=== PATIENT | female | born 1995 | race Caucasian/White ===

== ENCOUNTER → 2019-09-07 14:34 | Outpatient (BNVA) | payer SELFPAY | PROVIDERS: Family Provider Nurse Practitioner Family; Visit Provider Nurse Practitioner Family | DX: R35.0 Frequency of micturition (principal); E11.9 Type 2 diabetes mellitus without complications | CPT/HCPCS: 36416; 81003; 82962; 83036 ==

== ENCOUNTER → 2019-09-08 09:34 | Outpatient (BNVA) | payer SELFPAY | PROVIDERS: Family Provider Nurse Practitioner Family; Visit Provider Nurse Practitioner Family | DX: R35.0 Frequency of micturition (principal); E11.9 Type 2 diabetes mellitus without complications; N76.0 Acute vaginitis | CPT/HCPCS: 87070; 87106 ==

== ENCOUNTER → 2019-12-02 11:11 | Outpatient (BNVA) | payer BC, SELFPAY | PROVIDERS: Family Provider Nurse Practitioner Family; PCP Nurse Practitioner Family; Visit Provider Nurse Practitioner Family | DX: E11.9 Type 2 diabetes mellitus without complications (principal) | CPT/HCPCS: 83036 ==

== ENCOUNTER → 2020-04-25 10:42 | Outpatient (BNVA) | payer BC, SELFPAY | PROVIDERS: Family Provider Nurse Practitioner Family; PCP Nurse Practitioner Family; Visit Provider Nurse Practitioner Family | DX: Z20.828 Contact with and (suspected) exposure to other viral communicable diseases (principal) | CPT/HCPCS: 87635 ==

== ENCOUNTER → 2020-05-31 11:16 | Outpatient (BNVA) | payer BC, SELFPAY | PROVIDERS: Family Provider Nurse Practitioner Family; PCP Nurse Practitioner Family; Visit Provider Registered Nurse | DX: E11.9 Type 2 diabetes mellitus without complications (principal) | CPT/HCPCS: 80053; 80061; 83036; 85025 ==

== ENCOUNTER → 2020-12-06 10:22 | Outpatient (BNVA) | payer BC, SELFPAY | PROVIDERS: Family Provider Nurse Practitioner Family; PCP Nurse Practitioner Family; Visit Provider Nurse Practitioner Family | DX: E78.5 Hyperlipidemia, unspecified (principal); Z79.899 Other long term (current) drug therapy; E11.9 Type 2 diabetes mellitus without complications; Z20.828 Contact with and (suspected) exposure to other viral communicable diseases | CPT/HCPCS: 80053; 80061; 83036; 87798 ==

== ENCOUNTER → 2021-05-19 09:27 | Outpatient (BNVA) | payer BC, SELFPAY | PROVIDERS: Family Provider Nurse Practitioner Family; PCP Nurse Practitioner Family | DX: Z20.822 Contact with and (suspected) exposure to COVID-19 (principal) | CPT/HCPCS: 87635 ==

== ENCOUNTER → 2021-05-31 14:09 | Outpatient (BNVA) | payer BC, SELFPAY | PROVIDERS: Family Provider Nurse Practitioner Family; PCP Nurse Practitioner Family; Visit Provider Nurse Practitioner Family | DX: E11.9 Type 2 diabetes mellitus without complications (principal); E66.9 Obesity, unspecified | CPT/HCPCS: 80053; 83036; 84443 ==

== ENCOUNTER → 2022-06-01 09:55 | Outpatient (BNVA) | payer BC, SELFPAY | PROVIDERS: Family Provider Nurse Practitioner Family; PCP Nurse Practitioner Family; Visit Provider Nurse Practitioner Family | DX: E11.9 Type 2 diabetes mellitus without complications (principal); I10 Essential (primary) hypertension | CPT/HCPCS: 80053; 80061; 83036 ==

== ENCOUNTER → 2022-11-28 08:41 | Outpatient (BNVA) | payer BC, SELFPAY | PROVIDERS: Family Provider Nurse Practitioner Family; PCP Nurse Practitioner Family; Visit Provider Nurse Practitioner Family | DX: E11.9 Type 2 diabetes mellitus without complications (principal); I10 Essential (primary) hypertension | CPT/HCPCS: 80053; 80061; 83036 ==

== ENCOUNTER → 2023-06-05 14:57 | Outpatient (BNVA) | payer BC, SELFPAY | PROVIDERS: Family Provider Nurse Practitioner Family; PCP Nurse Practitioner Family; Visit Provider Nurse Practitioner Family | DX: E11.9 Type 2 diabetes mellitus without complications (principal); I10 Essential (primary) hypertension; E78.5 Hyperlipidemia, unspecified | CPT/HCPCS: 80053; 80061; 83036 ==

== ENCOUNTER → 2023-07-24 15:17 | Outpatient (BNVA) | payer BC, SELFPAY | PROVIDERS: Family Provider Nurse Practitioner Family; PCP Nurse Practitioner Family; Visit Provider Nurse Practitioner Family | DX: Z34.90 Encounter for supervision of normal pregnancy, unspecified, unspecified trimester (principal); Z3A.01 Less than 8 weeks gestation of pregnancy | CPT/HCPCS: 81025 ==

== ENCOUNTER → 2023-08-14 08:28 | Outpatient (BNVA) | payer BC, MEDICAID, SELFPAY | PROVIDERS: Family Provider Nurse Practitioner Family; PCP Nurse Practitioner Family; Referring Provider Nurse Practitioner Family; Visit Provider Nurse Practitioner Women's Health | DX: Z34.90 Encounter for supervision of normal pregnancy, unspecified, unspecified trimester (principal) | CPT/HCPCS: 80307; 84315; 84439; 84443; 84481; 85025; 86592; 86762; 86803; 86850; 86900; 87086; 87340; 87806 ==

== ENCOUNTER → 2023-08-28 07:51 | Outpatient (BNVA) | payer BC, MEDICAID, SELFPAY | PROVIDERS: Family Provider Nurse Practitioner Family; PCP Nurse Practitioner Family; Visit Provider Obstetrics & Gynecology | DX: Z36.87 Encounter for antenatal screening for uncertain dates (principal) | CPT/HCPCS: 76801 ==

== ENCOUNTER → 2023-09-11 11:10 | Outpatient (BNVA) | payer BC, MEDICAID, SELFPAY | PROVIDERS: Family Provider Nurse Practitioner Family; PCP Nurse Practitioner Family; Visit Provider Obstetrics & Gynecology | DX: N93.9 Abnormal uterine and vaginal bleeding, unspecified | CPT/HCPCS: 82950; 84315; 87086; 88175 ==

== ENCOUNTER → 2023-10-01 07:53 | Outpatient (BNVA) | payer BC, MEDICAID, SELFPAY | PROVIDERS: Family Provider Nurse Practitioner Family; PCP Nurse Practitioner Family; Visit Provider Nurse Practitioner Women's Health | DX: Z34.81 Encounter for supervision of other normal pregnancy, first trimester (principal) | CPT/HCPCS: 82105; 84315 ==

== ENCOUNTER → 2023-10-31 09:41 | Outpatient (BNVA) | payer BC, MEDICAID, SELFPAY | PROVIDERS: Family Provider Nurse Practitioner Family; PCP Nurse Practitioner Family; Visit Provider Obstetrics & Gynecology | DX: Z36.87 Encounter for antenatal screening for uncertain dates (principal) | CPT/HCPCS: 76805 ==

== ENCOUNTER → 2023-11-28 08:52 | Outpatient (BNVA) | payer BC, OTHER, SELFPAY | PROVIDERS: Family Provider Nurse Practitioner Family; PCP Nurse Practitioner Family; Visit Provider Nurse Practitioner Women's Health | DX: Z34.82 Encounter for supervision of other normal pregnancy, second trimester (principal) | CPT/HCPCS: 76816; 84315 ==

== ENCOUNTER 2023-12-10 09:42 | Outpatient (CLI) | payer BC, OTHER, SELFPAY ==
--- NOTE | 2023-12-10 14:55 | OP.DCCON ---
Reason for Visit: O24.119 - Pre-existing type 2 diabetes mellitus, i Person Interviewed: Patient Medical History, Labs and Background: Eliza said she was diagnosed with DM2 in 2019 and has been taking 500mg Metformin ever since. Right after being diagnosed, she changed her diet and lost 40lbs. She also is and due March 18. She is worried about her blood glucose levels and wants meal plans of what to eat. Height: 5 ft 11 in Weight: 269 lb BMI: 37.6 kg/m2 Weight History: She lost 40lbs after being diagnosed with DM2 4 years ago. Concerns and Goals: She would like meal plans. Sleep Hygiene: Sleep is erratic per Eliza - she is up going to the bathroom every 3-4 hours. Physical Activity: Walking is her time to de-stress so she tries to walk 3 miles at least 3x/week. Food Allergies and Sensitivities: NKA Meds, Supplements & Other: vitamins 24 Hour Recall: Breakfast Time: 6am scrambled eggs(2)w/cheese, 2 sausage links, 1 pc low jaclyn sugar free bread Snack Time: 11am yogurt+berries+nuts Lunch Time: Snack Time: 3pm vegetable soup plus crackers Dinner Time: Snack Time: 6pm vegetable soup + crackers Eating Out: They will eat out 2-3x/week at least Soda vs Milk vs Water: In the morning Eliza will have diet Dr. Mc or Diet Earle, she drinks 3-5 plascencia/day and occasionally milk. Additional Comments: Eliza seems motivated to keep her blood glucose levels WNL. Currently she has gained more weight than she anticipated and is hoping it won't continue. Certain foods spike her blood glucose like mandarin oranges and regular potatoes so she avoids them. Breakfast time can be a struggle for her. Humberto her fiance and her sister are her biggest sources of support and encouragement. Recommendations: Assessment: Overall Eliza has a good start with healthy habits. She is drinking water, eating regularly and enjoys/needs exercising. The more we talked, the more it became clear she wanted not just meal plans but help with portions. Nutrition diagnosis: Altered nutrition labs r/t DM2 AEB high blood glucose readings. Intervention: We discussed the Diabetic MyPlate handout to get an idea of managing carbohydrates and rounding out each meal or snack with lean protein and healthy fats. Then we discussed breakfast because Eliza said it is a struggle d/t being busy. We talked about high protein/ low carb drinks or shakes for the times when she feels too busy. Also, we talked about meal prep and planning which would be a good habit to have now so that life is easier once baby comes. Part of that is creating an environment in her pantry and kitchen such that she has foods on hand that she knows will be healthy choices. Since her fiance works nights, we talked about Saturday being a day of meal prepping so that they could plan and prep together. For meal plan ideas, I gave her 6 weeks worth of balanced meals to use for ideas or as templates. Lastly I encouraged her to keep up drinking water and walking. She said she already has a good stroller to take baby on walks. Monitoring and Evaluation: The take home paper has my email and phone/extension for any f/u questions and concerns. Coding Level of Care Code Nutrition/Individ/Init 60 min Time Spent (min) 60
== END 2023-12-10 09:43 | disposition home or self-care (01) ==
LOC: DIET 09:43
PROVIDERS: Family Provider Nurse Practitioner Family; PCP Nurse Practitioner Family; Visit Provider Obstetrics & Gynecology
DX: O24.119 Pre-existing type 2 diabetes mellitus, in pregnancy, unspecified trimester (principal); Z79.84 Long term (current) use of oral hypoglycemic drugs
CPT/HCPCS: 97802

== ENCOUNTER → 2023-12-25 07:44 | Outpatient (BNVA) | payer BC, OTHER, SELFPAY | PROVIDERS: Family Provider Nurse Practitioner Family; PCP Nurse Practitioner Family; Visit Provider Obstetrics & Gynecology | DX: Z34.90 Encounter for supervision of normal pregnancy, unspecified, unspecified trimester (principal) | CPT/HCPCS: 82951; 82952; 84315 ==

== ENCOUNTER → 2024-01-16 13:12 | Outpatient (BNVA) | payer BC, OTHER, SELFPAY | PROVIDERS: Family Provider Nurse Practitioner Family; PCP Nurse Practitioner Family; Visit Provider Obstetrics & Gynecology | DX: Z34.90 Encounter for supervision of normal pregnancy, unspecified, unspecified trimester (principal) | CPT/HCPCS: 76816 ==

== ENCOUNTER 2024-02-07 18:09 | Outpatient (CLI) | payer BC, OTHER, MEDICAID, SELFPAY ==
[2024-02-07] VITALS (13 sets, daily range): BP systolic 140–214; BP diastolic 74–115; PULSE 84–110; RESP 14–17; BMI 39.2
[2024-02-07 18:43] LABS: Add Urine Microscopic? NO; Charge for UA Resulting for Rev
[2024-02-07 18:46] LABS: Bilirubin Urine Neg (Negative); Blood Urine Neg (Negative); Glucose Urine UA Norm (Normal); Ketones Urine 3+ (Negative); Leukocyte Esterase Urine Negative (Negative); Nitrate Urine Negative (Negative); Protein Urine Neg (Negative); Urine Appearance Clear (CLEAR); Urine Color Yellow (Yellow); Urobilinogen Urine 1 mg/dL (Negative); pH Urine 5 (5-7)
[2024-02-07 19:11] LABS: Urine Creatinine 128 mg/dL (28-217); Urine Protein Random 15 mg/dL
[2024-02-07 19:12] LABS: UPRO/UCREAT Ratio 0.12 mg/mg CR
[2024-02-07] MEDS: NIFEdipine ER (24 hr) 30 mg Tablet PO (19:15)
[2024-02-07 19:29] LABS: Alanine Aminotransferase 8 U/L (0-33); Albumin Level 3.7 g/dL (3.5-5.2); Alkaline Phosphatase 61 U/L (35-105); Anion Gap 18.4 (5-19); Aspartate Amino Transferase 13 U/L (0-32); Blood Urea Nitrogen 11 mg/dL (6-20); Calcium 9.4 mg/dL (8.5-10.5); Carbon Dioxide 22 mmol/L (22-29); Chloride 103 mmol/L (98-107); Creatinine Clr Calc Pharmacy 242.7457; Globulin 3.8 g/dL (1.3-4.6); Glomerular Filtration Rate 144.9 mL/min (90-130); Glucose 97 mg/dL (65-115); Osmolality Calculated 287 mOsm/kg (285-295); Potassium 4.4 mmol/L (3.5-5.1); Sodium 139 mmol/L (136-145); Total Bilirubin 0.2 mg/dL (0.15-1.2); Total Protein 7.5 g/dL (6.6-8.7); Uric Acid 4.7 mg/dL (2.4-5.7)
[2024-02-07 19:36] LABS: Basophils % 0.3 %; Eosinophils # 0.1 10^3/uL (0.0-0.8); Eosinophils % 0.7 %; Hematocrit 39.9 % (36-47); Lymphocytes # 2.1 10^3/uL (0.8-4.8); Lymphocytes % 19.8 %; Mean Corpuscular HGB Conc 33.8 g/dL (30-55); Mean Corpuscular Volume 91.5 fl (85-98); Mean Platelet Volume 10.3 fL (7.4-10.4); Monocytes # 0.7 10^3/uL (0.2-0.9); Monocytes % 6.5 %; Neutrophils # 7.44 10^3/uL (1.8-7.7); Neutrophils % 71.8 %; Nucleated Red Blood Cells % 0 %; Platelet Count 295 10^3/cmm (157-399); Red Blood Count 4.36 10^6/uL (3.85-5.65); Red Cell Distribution Width 13.6 % (12.1-15.1); White Blood Count 10.35 10^3/uL (3.29-11.43)
[2024-02-07] MEDS: betamethasone susp 6 mg/mL 1 mL (per mL) 12 MG IM (21:23)
== END 2024-02-07 21:53 | disposition home or self-care (01) ==
LOC: OPOB 18:11 → OBGYN 18:11
PROVIDERS: Family Provider Nurse Practitioner Family; PCP Nurse Practitioner Family; Visit Provider Obstetrics & Gynecology
DX: O24.419 Gestational diabetes mellitus in pregnancy, unspecified control (principal); Z3A.00 Weeks of gestation of pregnancy not specified
CPT/HCPCS: 36415; 59025; 80053; 81003; 82570; 84156; 84550; 85025; 96372; 99211; J0702

== ENCOUNTER 2024-02-09 09:36 | Outpatient (CLI) | payer BC, MEDICAID, SELFPAY ==
[2024-02-09 09:41] VITALS: BMI 39.0
[2024-02-09 09:45] VITALS: RESP 18
[2024-02-09 09:53] VITALS: RESP 18; TEMP 36.8
[2024-02-09 09:57] VITALS: BP 145/82; PULSE 95
[2024-02-09 10:01] LABS: Total Volume, Urine 3400 mL
[2024-02-09 10:07] VITALS: BP 144/78; PULSE 90
[2024-02-09 10:10] LABS: Urine Total Protein 7.3 mg/dL (0-150)
[2024-02-09 10:17] VITALS: BP 137/74; PULSE 96
[2024-02-09 10:18] LABS: Urine Total Protein 24 Hour 248.2 mg/24hr (0-150)
== END 2024-02-09 10:30 ==
LOC: OPOB 09:36 → OBGYN 09:37
PROVIDERS: Family Provider Nurse Practitioner Family; PCP Nurse Practitioner Family; Visit Provider Obstetrics & Gynecology
DX: O16.9 Unspecified maternal hypertension, unspecified trimester (principal); Z3A.00 Weeks of gestation of pregnancy not specified
CPT/HCPCS: 59025; 84156

== ENCOUNTER 2024-02-12 08:23 | Outpatient (CLI) | payer BC, MEDICAID, SELFPAY ==
[2024-02-12] VITALS (9 sets, daily range): BP systolic 135–194; BP diastolic 67–102; PULSE 82–110; BMI 38.7
[2024-02-12 09:04] LABS: Add Urine Microscopic? NO; Charge for UA Resulting for Rev
[2024-02-12 09:11] LABS: Basophils % 0.3 %; Eosinophils # 0.1 10^3/uL (0.0-0.8); Eosinophils % 0.7 %; Lymphocytes # 1.5 10^3/uL (0.8-4.8); Lymphocytes % 14.4 %; Mean Corpuscular HGB Conc 33.8 g/dL (30-55); Mean Corpuscular Hemoglobin 30.3 pg (27-33); Mean Corpuscular Volume 89.7 fl (85-98); Mean Platelet Volume 9.7 fL (7.4-10.4); Monocytes # 0.7 10^3/uL (0.2-0.9); Monocytes % 6.3 %; Neutrophils # 8.24 10^3/uL (1.8-7.7); Nucleated Red Blood Cells % 0 %; Platelet Count 281 10^3/cmm (157-399); Red Blood Count 4.35 10^6/uL (3.85-5.65); Red Cell Distribution Width 13.3 % (12.1-15.1); White Blood Count 10.71 10^3/uL (3.29-11.43)
[2024-02-12 09:29] LABS: Alanine Aminotransferase 10 U/L (0-33); Albumin Level 3.6 g/dL (3.5-5.2); Alkaline Phosphatase 63 U/L (35-105); Anion Gap 17.7 (5-19); Aspartate Amino Transferase 12 U/L (0-32); Blood Urea Nitrogen 7 mg/dL (6-20); Carbon Dioxide 19 mmol/L (22-29); Chloride 105 mmol/L (98-107); Globulin 3.5 g/dL (1.3-4.6); Glomerular Filtration Rate 144.9 mL/min (90-130); Glucose 145 mg/dL (65-115); Osmolality Calculated 287 mOsm/kg (285-295); Potassium 3.7 mmol/L (3.5-5.1); Sodium 138 mmol/L (136-145); Total Bilirubin 0.2 mg/dL (0.15-1.2); Total Protein 7.1 g/dL (6.6-8.7); Uric Acid 4.7 mg/dL (2.4-5.7)
[2024-02-12 09:33] LABS: Blood Urine Neg (Negative); Glucose Urine UA Norm (Normal); Ketones Urine Negative (Negative); Protein Urine Neg (Negative); Urine Appearance Clear (CLEAR); Urine Color Yellow (Yellow); pH Urine 7 (5-7)
[2024-02-12 09:34] LABS: Bilirubin Urine Neg (Negative); Leukocyte Esterase Urine Negative (Negative); Nitrate Urine Negative (Negative); Urobilinogen Urine Norm (Negative)
[2024-02-12 09:57] LABS: Urine Creatinine 65 mg/dL (28-217); Urine Protein Random 9 mg/dL
[2024-02-12 10:16] LABS: UPRO/UCREAT Ratio 0.14 mg/mg CR
== END 2024-02-12 10:38 | disposition home or self-care (01) ==
LOC: OPOB 08:26 → OBGYN 08:29
PROVIDERS: Obstetrics & Gynecology; Family Provider Nurse Practitioner Family; PCP Nurse Practitioner Family; Visit Provider Obstetrics & Gynecology
DX: O24.419 Gestational diabetes mellitus in pregnancy, unspecified control (principal); O16.9 Unspecified maternal hypertension, unspecified trimester; Z3A.00 Weeks of gestation of pregnancy not specified
CPT/HCPCS: 36415; 59025; 80053; 81003; 82570; 84156; 84315; 84550; 85025

== ENCOUNTER 2024-02-23 11:10 | Outpatient (CLI) | payer BC, MEDICAID, SELFPAY ==
[2024-02-23 11:22] VITALS: BP 142/78; PULSE 93
[2024-02-23 11:27] VITALS: BMI 38.6
[2024-02-23 11:28] VITALS: RESP 18
[2024-02-23 11:37] VITALS: BP 116/64; PULSE 88
== END 2024-02-23 11:45 | disposition home or self-care (01) ==
LOC: OPOB 11:17 → OBGYN 11:18
PROVIDERS: Family Provider Nurse Practitioner Family; PCP Nurse Practitioner Family; Visit Provider Obstetrics & Gynecology
DX: O16.9 Unspecified maternal hypertension, unspecified trimester (principal); Z3A.00 Weeks of gestation of pregnancy not specified
CPT/HCPCS: 59025

== ENCOUNTER 2024-03-04 07:55 | Inpatient (IN) | payer BC, MEDICAID, SELFPAY ==
[2024-03-04] VITALS (32 sets, daily range): BP systolic 118–182; BP diastolic 63–98; PULSE 46–106; RESP 16; TEMP 36.1; BMI 39.0
[2024-03-04 09:33] LABS: Basophils % 0.3 %; Eosinophils # 0.1 10^3/uL (0.0-0.8); Eosinophils % 0.8 %; Hematocrit 41.5 % (36-47); Lymphocytes # 1.6 10^3/uL (0.8-4.8); Lymphocytes % 18.4 %; Mean Corpuscular HGB Conc 33.3 g/dL (30-55); Mean Corpuscular Hemoglobin 30.3 pg (27-33); Monocytes # 0.6 10^3/uL (0.2-0.9); Monocytes % 6.4 %; Neutrophils # 6.47 10^3/uL (1.8-7.7); Neutrophils % 72.9 %; Nucleated Red Blood Cells % 0 %; Platelet Count 299 10^3/cmm (157-399); Red Blood Count 4.56 10^6/uL (3.85-5.65); Red Cell Distribution Width 13.6 % (12.1-15.1); White Blood Count 8.89 10^3/uL (3.29-11.43)
--- NOTE | 2024-03-04 11:05 | PM.OBGYHP ---
Providers/Chief Complaint Admitting Physician: Rohit Peraza MD Primary PARKING LINE PAINTER: Rohit Peraza MD Primary Care Provider: GAYLE Thorpe Chief Complaint: IOL HPI PARKING LINE PAINTER History of Present Illness Eliza Robison is a 29 year old female G1 EDC March 18, 2024 At 38 w 0 d complicated by gestational diabetes, requiring insulin And gestational hypertension, requiring Procardia 30 mg XL bid Now admitted for induction of labor No c/o + active movements 3-h GTT done December 25, 2023: 127 / 266 / 223 / 98 Started on accuchecks Accuchecks done at home showed elevated FBS and normal 1-h postprandial values Patient was started on evening NPH 10 U at 9 pm for fasting hyperglycemia on January 08, 2024 Presently on evening NPH 19 U at 9 pm Over the past week, FBS still mildly elevated; one-h postprandial values normal BPs occasionally have been significantly elevated to 150-160 / 90-100, already on procardia Has been getting twice weekly NSTs and BP checks in L&D, all of which have been normal Present Details : 1 Para: 0 Labs Rubella: Immune RPR: Negative GBS: Negative Medications/Allergies Home Medications Medication Instructions Recorded Confirmed Last Taken Type blood-glucose meter (Blood Glucose #1 ea 09/07/19 02/26/24 Unknown Rx Monitoring kit) blood-glucose meter (Blood Glucose #1 ea 11/29/23 02/26/24 Unknown Rx Monitoring kit) lancets 30 gauge (2-In-1 Lancet #100 ea 12/12/23 02/26/24 Unknown Rx Device) insulin NPH isoph U-100 human 100 10 unit (0.1 mL) SUBCUT DAILY 01/08/24 03/05/24 03/04/24 21:00 Rx unit/mL (3 mL) subcutaneous pen Gestational Diabetes #15 mL (Novolin N FlexPen) blood sugar diagnostic (OneTouch #100 ea 01/24/24 02/26/24 Unknown Rx Verio test strips) nifedipine 30 mg tablet,extended 30 mg PO BID #60 tabs 02/08/24 03/05/24 03/05/24 07:53 Rx release 24 hr (Procardia XL) metformin 500 mg tablet See Rx Instructions .Route 02/26/24 03/05/24 03/05/24 07:53 Rx .COMPLEX #90 tabs Allergies Allergy/AdvReac Type Severity Reaction Status Date / Time No Known Allergies Allergy Verified 02/26/24 07:48 PFSH PARKING LINE PAINTER PFSH: Family History Denies family history of Colon cancer Ovarian cancer Diabetes Heart disease Breast cancer Hypertension Uterine cancer Thyroid disease Stroke Social History Smoking and tobacco/nicotine status: never used tobacco/nicotine History History History 1 Term Miscarriages/Ectopic Living Children Care DANIKA Calculator Estimated Delivery Date Method Current WG Current Estimate 03/18/24 LMP (Certain) 38w 2d Vitals/I&O/Wt Last Vital Signs Temp 97.0 F L 03/04/24 19:33 Pulse 82 03/05/24 05:42 Resp 16 03/04/24 18:02 BP 176/91 03/05/24 05:42 O2 Del Method Room Air 03/04/24 15:02 03/04/24 03/04/24 03/05/24 14:59 22:59 06:59 Intake Total 500 / 500 Balance 500 / 500 Weight last 48 hrs Weight 280 lb Physical Exam Narrative: Weight 285 lbs; 5?11? General: comfortable, awake, alert Lungs: clear Cor: RRR Abd: nontender FH 37 cm, cephalic Cervix: FT / 25% / high / posterior Ext: no edema External monitoring: heart tracing good variability, + accelerations Data 03/04/24 08:22 Results Labs OB ([facility]): Obstetrics US 01/16/24 Blood Type O Positive 03/04/24 Antibody Screen Negative 03/04/24 Hct 41.5 % (36-47) 03/04/24 Hgb 13.80 g/dL (11.27-16.99) 03/04/24 Rho(D) Type Rh positive 03/04/24 Plt Count 299 10^3/cmm (157-399) 03/04/24 Hep Bs Antigen Non-reactive (Nonreactive) 08/14/23 Hepatitis C Antibody Non-reactive (Nonreactive) 08/14/23 Rubella IgG Antibody 261.3 IU/mL (0.0-10.0) H 08/14/23 RPR Nonreactive (Nonreactive) 08/14/23 HIV 1&2 Ab & HIV 1 Ag Non-reactive (Non-Reactiv) 08/14/23 TSH 1.66 uIU/mL (0.27-4.20) 08/14/23 Free T4 1.15 ng/dL (0.82-1.77) 08/14/23 Cystic Fibrosis Screen Negative 08/14/23 Glucose 1 Hr 50 gm 134 mg/dL (85-140) 09/11/23 Gest Glucose Tolerance mg/dL 12/25/23 Hemoglobin A1c 5.5 % (4.0-6.0) 06/05/23 Uric Acid 4.7 mg/dL (2.4-5.7) 02/12/24 HCG, Qual Positive (Negative) H 07/24/23 Urine Opiates Screen Negative ng/mL (Negative) 08/14/23 Ur Barbiturates Screen Negative ng/mL (Negative) 08/14/23 Ur Phencyclidine Scrn Negative ng/mL (Negative) 08/14/23 Ur Amphetamines Screen Negative ng/mL (Negative) 08/14/23 U Benzodiazepines Scrn Negative ng/mL (Negative) 08/14/23 Urine Cocaine Screen Negative ng/mL (Negative) 08/14/23 U Marijuana (THC) Screen Negative ng/mL (Negative) 08/14/23 Micro Urine Specimen 09/11/23 Pap Smear Interpret See note 09/11/23 A&P Assessment and plan (1) Encounter for induction of labor: 38 w 0 d admitted for induction of labor (2) Type 2 diabetes mellitus affecting , antepartum: Admit for IOL Cervix unfavorable Plan Cytotec 25 ug intravaginal (3) Hypertension: gestational hypertension BPs intermittently elevated to 170 / 110 No headaches, blurry vision, swelling continue Procardia 30 mg XL continue close monitoring Attestations Medical Necessity Statement*: Patient at 38 w 0 d, with gestational diabetes and hypertension, on insulin and Procardia Admitted for induction of labor Coding Level of Care Code Acute Code for Chg Fwd Diagnoses Encounter for induction of labor Z34.90 Type 2 diabetes mellitus affecting , antepartum O24.119 Hypertension I10 Time Spent (min) 30
--- NOTE | 2024-03-04 11:20 | P.PN_ITS ---
CIVIL ENGINEERING DRAFTER Subjective 2 Subjective: Interval history: Fetus reassuring BPs intermittently elevated, now better No headache, blurry vision Received one dose of Cytotec 25 ug intravaginal Labor: Station: +2 Amniotic Membrane Status: Intact Monitor Mode: Internal (IUPC) Contraction Pattern: Regular Uterine Tone Measurement: 15 Vitals/I&O/Wt Last Vital Signs Temp 98.2 F 03/06/24 03:58 Pulse 111 H 03/06/24 08:06 Resp 16 03/04/24 18:02 BP 141/67 03/06/24 08:06 Pulse Ox 100 03/05/24 07:42 O2 Del Method Room Air 03/06/24 02:59 03/05/24 03/06/24 03/06/24 22:59 06:59 14:59 Intake Total 431.833 / 2502.833 760.417 / 3263.250 436.750 / 436.750 Output Total 1600 / 1600 700 / 2300 Balance -1168.167 / 902.833 60.417 / 963.250 436.750 / 436.750 Physical Exam 2 Urinary Catheter Management: Rivera: Cath Placed During This Visit: yes, but has since been removed by the nurse Reason for Continuing Indwelling Catheter: Decision to DC Catheter Urinary Catheter Date of Insertion: 03/05/24 Urinary Catheter Time of Insertion: 07:39 Date Urinary Catheter Removed: 03/06/24 Time Urinary Catheter Discontinued: 06:08 Data 03/04/24 08:22 A&P Assessment and plan (1) Encounter for induction of labor: (2) Type 2 diabetes mellitus affecting , antepartum: (3) Hypertension: Attestations 2 Medical Necessity Statement*: Patient at 38 w 0 d, with gestational diabetes and hypertension, on insulin and Procardia Admitted for induction of labor Coding Level of Care Code Acute Code for Chg Fwd Diagnoses Encounter for induction of labor Z34.90 Type 2 diabetes mellitus affecting , antepartum O24.119 Hypertension I10 Time Spent (min) 20
--- NOTE | 2024-03-04 12:39 | P.ANESASSM_ITS ---
Pre-Anesthetic Assessment Height/Weight: Height 1.8 m Pulse BP O2 Del Method 91 142/74 Room Air 03/04/24 12:28 03/04/24 12:28 03/04/24 11:21 Familial anesthetic complications: None Was Beta Doug taken within 24 hours: N/A Was Clonidine taken within 24 hours: N/A Last intake: Solids 1230 Social No alcohol and No tobacco Exam alert, oriented x 3, clear to auscultation bilaterally and regular rate & rhythm Airway Submandibular: within normal limits Cervical ROM: within normal limits Mallampati: Class II Dentition: full History/ROS No significant history except as noted and No significant complaints Pulmonary None reported CV/HEM Hypertension (Gestational HTN) None reported Hepatic None reported GI Gastroesophageal Reflux Disease Metabolic Diabetes Mellitus (Gestational) and Morbid Obesity [facility] [place] None reported Neuropsych None reported Anesthetic Plan ASA status: 2 Anesthesia: Anesthesia Evaluation, General and Regional (specify below) (Epidural) Risk of > 500 ml blood loss (7ml/kg in children): Yes, adequate IV access and fluids planned Medications/Allergies Home Medications Medication Instructions Recorded Confirmed Last Taken Type blood-glucose meter (Blood Glucose #1 ea 09/07/19 02/26/24 Unknown Rx Monitoring kit) blood-glucose meter (Blood Glucose #1 ea 11/29/23 02/26/24 Unknown Rx Monitoring kit) lancets 30 gauge (2-In-1 Lancet #100 ea 12/12/23 02/26/24 Unknown Rx Device) insulin NPH isoph U-100 human 100 10 unit (0.1 mL) SUBCUT DAILY 01/08/24 02/26/24 02/15/24 Rx unit/mL (3 mL) subcutaneous pen Gestational Diabetes #15 mL (Novolin N FlexPen) blood sugar diagnostic (OneTouch #100 ea 01/24/24 02/26/24 Unknown Rx Verio test strips) nifedipine 30 mg tablet,extended 30 mg PO BID #60 tabs 02/08/24 02/26/24 02/16/24 Rx release 24 hr (Procardia XL) metformin 500 mg tablet See Rx Instructions .Route 02/26/24 Unknown Rx .COMPLEX #90 tabs Allergies Allergy/AdvReac Type Severity Reaction Status Date / Time No Known Allergies Allergy Verified 02/26/24 07:48 [facility] Anesthesia Family History Denies family history of Colon cancer Ovarian cancer Diabetes Heart disease Breast cancer Hypertension Uterine cancer Thyroid disease Stroke Social History Smoking and tobacco/nicotine status: never used tobacco/nicotine Data Anesthesia 03/04/24 08:22 Short CBC 03/04/24 Range/Units 08:22 WBC 8.89 (3.29-11.43) 10^3/uL Hgb 13.80 (11.27-16.99) g/dL Hct 41.5 (36-47) % MCV 91.0 (85-98) fl Plt Count 299 (157-399) 10^3/cmm Neut % (Auto) 72.9 % Neut # (Auto) 6.47 (1.8-7.7) 10^3/uL Blood Bank 03/04/24 08:22 Blood Type O Positive Rho(D) Type Rh positive Antibody Screen Negative Cardiac Studies: 2 No Data to Display
[2024-03-04] MEDS: miSOPROStol 100 mcg tablet 25 MCG VAGINAL ×2 (13:25→18:02)
--- NOTE | 2024-03-04 17:30 | P.PN_ITS ---
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 Subjective 2 Subjective: Interval history: Not feeling UCs Fetus reassuring Cervix: FT / -3 / posterior Plan second dose of Cytotec 25 ug intravaginal Labor: Station: +2 Amniotic Membrane Status: Intact Monitor Mode: Internal (IUPC) Contraction Pattern: Regular Uterine Tone Measurement: 15 Vitals/I&O/Wt Last Vital Signs Temp 98.2 F 03/06/24 03:58 Pulse 111 H 03/06/24 08:06 Resp 16 03/04/24 18:02 BP 141/67 03/06/24 08:06 Pulse Ox 100 03/05/24 07:42 O2 Del Method Room Air 03/06/24 02:59 03/05/24 03/06/24 03/06/24 22:59 06:59 14:59 Intake Total 431.833 / 2502.833 760.417 / 3263.250 436.750 / 436.750 Output Total 1600 / 1600 700 / 2300 Balance -1168.167 / 902.833 60.417 / 963.250 436.750 / 436.750 Physical Exam 2 Urinary Catheter Management: Rivera: Cath Placed During This Visit: yes, but has since been removed by the nurse Reason for Continuing Indwelling Catheter: Decision to DC Catheter Urinary Catheter Date of Insertion: 03/05/24 Urinary Catheter Time of Insertion: 07:39 Date Urinary Catheter Removed: 03/06/24 Time Urinary Catheter Discontinued: 06:08 Data 03/04/24 08:22 A&P Assessment and plan (1) Encounter for induction of labor: (2) Type 2 diabetes mellitus affecting , antepartum: (3) Hypertension: Attestations 2 Medical Necessity Statement*: Patient at 38 w 0 d, with gestational diabetes and hypertension, on insulin and Procardia Admitted for induction of labor Coding Level of Care Code Acute Code for Chg Fwd Diagnoses Encounter for induction of labor Z34.90 Type 2 diabetes mellitus affecting , antepartum O24.119 Hypertension I10 Time Spent (min) 20
--- NOTE | 2024-03-04 22:00 | PM.OBGYPN ---
SENIOR NATIONAL ACCOUNT MANAGER Subjective Subjective: Interval history: Fetus reassuring Feeling mild UCs Cervix: FT / -3 / posterior Plan third dose of Cytotec 25 ug intravaginal Labor: Station: +2 Amniotic Membrane Status: Intact Monitor Mode: Internal (IUPC) Contraction Pattern: Regular Uterine Tone Measurement: 15 Vitals/I&O/Wt Last Vital Signs Temp 98.2 F 03/06/24 03:58 Pulse 111 H 03/06/24 08:06 Resp 16 03/04/24 18:02 BP 141/67 03/06/24 08:06 Pulse Ox 100 03/05/24 07:42 O2 Del Method Room Air 03/06/24 02:59 03/05/24 03/06/24 03/06/24 22:59 06:59 14:59 Intake Total 431.833 / 2502.833 760.417 / 3263.250 436.750 / 436.750 Output Total 1600 / 1600 700 / 2300 Balance -1168.167 / 902.833 60.417 / 963.250 436.750 / 436.750 Physical Exam Urinary Catheter Management: Rivera: Cath Placed During This Visit: yes, but has since been removed by the nurse Reason for Continuing Indwelling Catheter: Decision to DC Catheter Urinary Catheter Date of Insertion: 03/05/24 Urinary Catheter Time of Insertion: 07:39 Date Urinary Catheter Removed: 03/06/24 Time Urinary Catheter Discontinued: 06:08 Data 03/04/24 08:22 A&P Assessment and plan (1) Encounter for induction of labor: (2) Type 2 diabetes mellitus affecting , antepartum: (3) Hypertension: Attestations Medical Necessity Statement*: Patient at 38 w 0 d, with gestational diabetes and hypertension, on insulin and Procardia Admitted for induction of labor Coding Level of Care Code Acute Code for Chg Fwd Diagnoses Encounter for induction of labor Z34.90 Type 2 diabetes mellitus affecting , antepartum O24.119 Hypertension I10 Time Spent (min) 20
[2024-03-05] VITALS (84 sets, daily range): BP systolic 112–187; BP diastolic 56–95; PULSE 68–127; TEMP 35.9–37.1; O2SAT 99–100
[2024-03-05] MEDS: miSOPROStol 100 mcg tablet 25 MCG VAGINAL (01:17)
--- NOTE | 2024-03-05 04:00 | P.PN_ITS ---
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 2 Subjective: Interval history: Fetus reassuring Spontaneous rupture of membranes, clear fluid Cervix: 1 cm / -3 Labor: Station: +2 Amniotic Membrane Status: Intact Monitor Mode: Internal (IUPC) Contraction Pattern: Regular Uterine Tone Measurement: 15 Vitals/I&O/Wt Last Vital Signs Temp 98.2 F 03/06/24 03:58 Pulse 111 H 03/06/24 08:06 Resp 16 03/04/24 18:02 BP 141/67 03/06/24 08:06 Pulse Ox 100 03/05/24 07:42 O2 Del Method Room Air 03/06/24 02:59 03/05/24 03/06/24 03/06/24 22:59 06:59 14:59 Intake Total 431.833 / 2502.833 760.417 / 3263.250 436.750 / 436.750 Output Total 1600 / 1600 700 / 2300 Balance -1168.167 / 902.833 60.417 / 963.250 436.750 / 436.750 Physical Exam 2 Urinary Catheter Management: Rivera: Cath Placed During This Visit: yes, but has since been removed by the nurse Reason for Continuing Indwelling Catheter: Decision to DC Catheter Urinary Catheter Date of Insertion: 03/05/24 Urinary Catheter Time of Insertion: 07:39 Date Urinary Catheter Removed: 03/06/24 Time Urinary Catheter Discontinued: 06:08 Data 03/04/24 08:22 Attestations 2 Medical Necessity Statement*: Patient at 38 w 1 d, with gestational diabetes and hypertension, on insulin and Procardia Admitted for induction of labor Coding Level of Care Code Acute Code for Chg Fwd Time Spent (min) 20
--- NOTE | 2024-03-05 05:00 | PM.OBGYPN ---
DIESEL STATIONARY ENGINEER Subjective Subjective: Interval history: Fetus reassuring Cervix: complete / +1 Plan start pushing efforts Labor: Station: +2 Amniotic Membrane Status: Intact Monitor Mode: Internal (IUPC) Contraction Pattern: Regular Uterine Tone Measurement: 15 Vitals/I&O/Wt Last Vital Signs Temp 98.2 F 03/06/24 03:58 Pulse 115 H 03/06/24 08:46 Resp 16 03/04/24 18:02 BP 120/71 03/06/24 08:46 Pulse Ox 100 03/05/24 07:42 O2 Del Method Room Air 03/06/24 02:59 03/05/24 03/06/24 03/06/24 22:59 06:59 14:59 Intake Total 431.833 / 2502.833 760.417 / 3263.250 436.750 / 436.750 Output Total 1600 / 1600 700 / 2300 Balance -1168.167 / 902.833 60.417 / 963.250 436.750 / 436.750 Physical Exam Urinary Catheter Management: Rivera: Cath Placed During This Visit: yes, but has since been removed by the nurse Reason for Continuing Indwelling Catheter: Decision to DC Catheter Urinary Catheter Date of Insertion: 03/05/24 Urinary Catheter Time of Insertion: 07:39 Date Urinary Catheter Removed: 03/06/24 Time Urinary Catheter Discontinued: 06:08 Data 03/04/24 08:22 A&P Assessment and plan (1) Encounter for induction of labor: (2) Type 2 diabetes mellitus affecting , antepartum: (3) Hypertension: Attestations Medical Necessity Statement*: Patient at 38 w 2 d, with gestational diabetes and hypertension, on insulin and Procardia Admitted for induction of labor Coding Level of Care Code Acute Code for Chg Fwd Diagnoses Encounter for induction of labor Z34.90 Type 2 diabetes mellitus affecting , antepartum O24.119 Hypertension I10 Time Spent (min) 20
[2024-03-05] MEDS: lactated ringers 1,000 ML 999 ML IV ×2 (06:07→07:10)
[2024-03-05] MEDS: ROPivacaine syringe 100 MG/50 ML SYRINGE 10 MG EPIDURAL ×3 (07:20→16:32)
--- NOTE | 2024-03-05 07:26 | ANES.PROC ---
Anesthesia Procedures Procedure/Date: 03/05/24 Epidural: Time Out Performed: Yes Consents Signed: Procedure Consent Consent: requested by attending/covering physician, from patient, from other, risks and benefits reviewed and patient agrees to proceed Lumbar Level: L3-L4 Epidural position: sitting Epidural procedure: sterile prep of area, 1% lidocaine to numb the area, 18 g needle, negative for paresthesia passed, neg for paresthesia, test dose given, 1.5% xylocaine 1:200k epi (5), 0.2% Ropivacaine bolus ml (5), placed PCEA, no systemic response, sterile dressing applied, L.U.D. no apparent complications and 0.2% Ropiavacaine @ mls/hr (10) Additional Comments: HILLARY at7 cm, threaded to 13 cm. Patient reported subsequent pain-free contraction
--- NOTE | 2024-03-05 07:30 | P.PN_ITS ---
LEAN ENGINEER Subjective 2 Subjective: Interval history: Fetus reassuring Feeling strong contractions Patient requests epidural Cervix: 2 cm / 50 % / -3 / posterior Labor: Station: +2 Amniotic Membrane Status: Intact Monitor Mode: Internal (IUPC) Contraction Pattern: Regular Uterine Tone Measurement: 15 Vitals/I&O/Wt Last Vital Signs Temp 98.2 F 03/06/24 03:58 Pulse 115 H 03/06/24 08:46 Resp 16 03/04/24 18:02 BP 120/71 03/06/24 08:46 Pulse Ox 100 03/05/24 07:42 O2 Del Method Room Air 03/06/24 02:59 03/05/24 03/06/24 03/06/24 22:59 06:59 14:59 Intake Total 431.833 / 2502.833 760.417 / 3263.250 436.750 / 436.750 Output Total 1600 / 1600 700 / 2300 Balance -1168.167 / 902.833 60.417 / 963.250 436.750 / 436.750 Physical Exam 2 Urinary Catheter Management: Rivera: Cath Placed During This Visit: yes, but has since been removed by the nurse Reason for Continuing Indwelling Catheter: Decision to DC Catheter Urinary Catheter Date of Insertion: 03/05/24 Urinary Catheter Time of Insertion: 07:39 Date Urinary Catheter Removed: 03/06/24 Time Urinary Catheter Discontinued: 06:08 Data 03/04/24 08:22 A&P Assessment and plan (1) Encounter for induction of labor: (2) Type 2 diabetes mellitus affecting , antepartum: (3) Hypertension: Attestations 2 Medical Necessity Statement*: Patient at 38 w 1 d, with gestational diabetes and hypertension, on insulin and Procardia Admitted for induction of labor Coding Level of Care Code Acute Code for Chg Fwd Diagnoses Encounter for induction of labor Z34.90 Type 2 diabetes mellitus affecting , antepartum O24.119 Hypertension I10 Time Spent (min) 20
--- NOTE | 2024-03-05 09:00 | PM.OBGYPN ---
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 OPERATOR Subjective Subjective: Interval history: Patient comfortable with epidural Fetus reassuring Plan start Pitocin per protocol Labor: Station: +2 Amniotic Membrane Status: Intact Monitor Mode: Internal (IUPC) Contraction Pattern: Regular Uterine Tone Measurement: 15 Vitals/I&O/Wt Last Vital Signs Temp 98.2 F 03/06/24 03:58 Pulse 115 H 03/06/24 08:46 Resp 16 03/04/24 18:02 BP 120/71 03/06/24 08:46 Pulse Ox 100 03/05/24 07:42 O2 Del Method Room Air 03/06/24 02:59 03/05/24 03/06/24 03/06/24 22:59 06:59 14:59 Intake Total 431.833 / 2502.833 760.417 / 3263.250 436.750 / 436.750 Output Total 1600 / 1600 700 / 2300 Balance -1168.167 / 902.833 60.417 / 963.250 436.750 / 436.750 Physical Exam Urinary Catheter Management: Rivera: Cath Placed During This Visit: yes, but has since been removed by the nurse Reason for Continuing Indwelling Catheter: Decision to DC Catheter Urinary Catheter Date of Insertion: 03/05/24 Urinary Catheter Time of Insertion: 07:39 Date Urinary Catheter Removed: 03/06/24 Time Urinary Catheter Discontinued: 06:08 Data 03/04/24 08:22 A&P Assessment and plan (1) Encounter for induction of labor: (2) Type 2 diabetes mellitus affecting , antepartum: (3) Hypertension: Attestations Medical Necessity Statement*: Patient at 38 w 1 d, with gestational diabetes and hypertension, on insulin and Procardia Admitted for induction of labor Coding Level of Care Code Acute Code for Chg Fwd Diagnoses Encounter for induction of labor Z34.90 Type 2 diabetes mellitus affecting , antepartum O24.119 Hypertension I10 Time Spent (min) 20
[2024-03-05] MEDS: oxytocin 30 UNIT/500 ML BAG IV (11:00)
[2024-03-05] MEDS: lactated ringers 1,000 ML 125 ML IV (12:29)
--- NOTE | 2024-03-05 13:45 | P.PN_ITS ---
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: Interval history: Fetus reassuring Cervix: 3 cm / 50% / -3 / posterior Labor: Station: +2 Amniotic Membrane Status: Intact Monitor Mode: Internal (IUPC) Contraction Pattern: Regular Uterine Tone Measurement: 15 Vitals/I&O/Wt Last Vital Signs Temp 98.2 F 03/06/24 03:58 Pulse 115 H 03/06/24 08:46 Resp 16 03/04/24 18:02 BP 120/71 03/06/24 08:46 Pulse Ox 100 03/05/24 07:42 O2 Del Method Room Air 03/06/24 02:59 03/05/24 03/06/24 03/06/24 22:59 06:59 14:59 Intake Total 431.833 / 2502.833 760.417 / 3263.250 436.750 / 436.750 Output Total 1600 / 1600 700 / 2300 Balance -1168.167 / 902.833 60.417 / 963.250 436.750 / 436.750 Physical Exam 2 Urinary Catheter Management: Rivera: Cath Placed During This Visit: yes, but has since been removed by the nurse Reason for Continuing Indwelling Catheter: Decision to DC Catheter Urinary Catheter Date of Insertion: 03/05/24 Urinary Catheter Time of Insertion: 07:39 Date Urinary Catheter Removed: 03/06/24 Time Urinary Catheter Discontinued: 06:08 Data 03/04/24 08:22 A&P Assessment and plan (1) Encounter for induction of labor: (2) Type 2 diabetes mellitus affecting , antepartum: (3) Hypertension: Attestations 2 Medical Necessity Statement*: Patient at 38 w 1 d, with gestational diabetes and hypertension, on insulin and Procardia Admitted for induction of labor Coding Level of Care Code Acute Code for Chg Fwd Diagnoses Encounter for induction of labor Z34.90 Type 2 diabetes mellitus affecting , antepartum O24.119 Hypertension I10 Time Spent (min) 20
--- NOTE | 2024-03-05 15:15 | P.PN_ITS ---
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: Interval history: Fetus reassuring Cervix: 3 cm / 50% / -2 / posterior IUPC placed Continue Pitocin Labor: Station: +2 Amniotic Membrane Status: Intact Monitor Mode: Internal (IUPC) Contraction Pattern: Regular Uterine Tone Measurement: 15 Vitals/I&O/Wt Last Vital Signs Temp 98.2 F 03/06/24 03:58 Pulse 115 H 03/06/24 08:46 Resp 16 03/04/24 18:02 BP 120/71 03/06/24 08:46 Pulse Ox 100 03/05/24 07:42 O2 Del Method Room Air 03/06/24 02:59 03/05/24 03/06/24 03/06/24 22:59 06:59 14:59 Intake Total 431.833 / 2502.833 760.417 / 3263.250 436.750 / 436.750 Output Total 1600 / 1600 700 / 2300 Balance -1168.167 / 902.833 60.417 / 963.250 436.750 / 436.750 Physical Exam 2 Urinary Catheter Management: Rivera: Cath Placed During This Visit: yes, but has since been removed by the nurse Reason for Continuing Indwelling Catheter: Decision to DC Catheter Urinary Catheter Date of Insertion: 03/05/24 Urinary Catheter Time of Insertion: 07:39 Date Urinary Catheter Removed: 03/06/24 Time Urinary Catheter Discontinued: 06:08 Data 03/04/24 08:22 A&P Assessment and plan (1) Encounter for induction of labor: (2) Type 2 diabetes mellitus affecting , antepartum: (3) Hypertension: Attestations 2 Medical Necessity Statement*: Patient at 38 w 1 d, with gestational diabetes and hypertension, on insulin and Procardia Admitted for induction of labor Coding Level of Care Code Acute Code for Chg Fwd Diagnoses Encounter for induction of labor Z34.90 Type 2 diabetes mellitus affecting , antepartum O24.119 Hypertension I10 Time Spent (min) 20
[2024-03-05] MEDS: NIFEdipine ER (24 hr) 30 mg Tablet PO (18:24)
[2024-03-05] MEDS: dextrose 5%-lactated ringers 1,000 ML 125 ML IV (20:11)
[2024-03-05] MEDS: ROPivacaine premix 200 MG/100 ML PREMIX 10 MG EPIDURAL (21:12)
--- NOTE | 2024-03-05 21:39 | PC.NURSE ---
Humalog not given per Dr. Stu BARRAZA orders.
--- NOTE | 2024-03-05 23:05 | P.PN_ITS ---
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: Interval history: Fetus reassuring Pitocin at 20 mU Cervix: 7 cm / 90% / -1 station Labor: Station: +2 Amniotic Membrane Status: Intact Monitor Mode: Internal (IUPC) Contraction Pattern: Regular Uterine Tone Measurement: 15 Vitals/I&O/Wt Last Vital Signs Temp 98.2 F 03/06/24 03:58 Pulse 115 H 03/06/24 08:46 Resp 16 03/04/24 18:02 BP 120/71 03/06/24 08:46 Pulse Ox 100 03/05/24 07:42 O2 Del Method Room Air 03/06/24 02:59 03/05/24 03/06/24 03/06/24 22:59 06:59 14:59 Intake Total 431.833 / 2502.833 760.417 / 3263.250 436.750 / 436.750 Output Total 1600 / 1600 700 / 2300 Balance -1168.167 / 902.833 60.417 / 963.250 436.750 / 436.750 Physical Exam 2 Urinary Catheter Management: Rivera: Cath Placed During This Visit: yes, but has since been removed by the nurse Reason for Continuing Indwelling Catheter: Decision to DC Catheter Urinary Catheter Date of Insertion: 03/05/24 Urinary Catheter Time of Insertion: 07:39 Date Urinary Catheter Removed: 03/06/24 Time Urinary Catheter Discontinued: 06:08 Data 03/04/24 08:22 A&P Assessment and plan (1) Encounter for induction of labor: (2) Diabetes mellitus type 2, controlled, without complications: (3) Hypertension: Attestations 2 Medical Necessity Statement*: Patient at 38 w 1 d, with gestational diabetes and hypertension, on insulin and Procardia Admitted for induction of labor Coding Level of Care Code Acute Code for Chg Fwd Diagnoses Encounter for induction of labor Z34.90 Diabetes mellitus type 2, controlled, without complications E11.9 Hypertension I10 Time Spent (min) 20
[2024-03-06] VITALS (40 sets, daily range): BP systolic 120–178; BP diastolic 65–94; PULSE 79–139; RESP 16–18; TEMP 36.5–38; O2SAT 98
[2024-03-06 00:47] LABS: Glucose Point of Care 96 mg/dL (70-110)
[2024-03-06] MEDS: dextrose 5%-lactated ringers 1,000 ML 125 ML IV (01:03)
[2024-03-06] MEDS: ondansetron 2 mg/ML SDV 2 mL 4 MG IVP (01:16)
[2024-03-06] MEDS: ROPivacaine premix 200 MG/100 ML PREMIX 10 MG EPIDURAL (03:00)
--- NOTE | 2024-03-06 07:45 | P.PN_ITS ---
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: Interval history: DELIVERY NOTE , vigorous male , OP Cord gases and blood obtained Normal placenta and cord Third-degree perineal laceration repaired in layers EBL: 300 cc No complications Labor: Station: +2 Amniotic Membrane Status: Intact Monitor Mode: Internal (IUPC) Contraction Pattern: Regular Uterine Tone Measurement: 15 Vitals/I&O/Wt Last Vital Signs Temp 98.2 F 03/06/24 03:58 Pulse 115 H 03/06/24 08:46 Resp 16 03/04/24 18:02 BP 120/71 03/06/24 08:46 Pulse Ox 100 03/05/24 07:42 O2 Del Method Room Air 03/06/24 02:59 03/05/24 03/06/24 03/06/24 22:59 06:59 14:59 Intake Total 431.833 / 2502.833 760.417 / 3263.250 436.750 / 436.750 Output Total 1600 / 1600 700 / 2300 Balance -1168.167 / 902.833 60.417 / 963.250 436.750 / 436.750 Physical Exam 2 Urinary Catheter Management: Rivera: Cath Placed During This Visit: yes, but has since been removed by the nurse Reason for Continuing Indwelling Catheter: Decision to DC Catheter Urinary Catheter Date of Insertion: 03/05/24 Urinary Catheter Time of Insertion: 07:39 Date Urinary Catheter Removed: 03/06/24 Time Urinary Catheter Discontinued: 06:08 Data 03/04/24 08:22 A&P Assessment and plan (1) Vaginal delivery: Attestations 2 Medical Necessity Statement*: Patient at 38 w 2 d, with gestational diabetes and hypertension, on insulin and Procardia Admitted for induction of labor Now s/p vaginal delivery Coding Level of Care Code Acute Code for Chg Fwd Diagnoses Vaginal delivery O80 Time Spent (min) 60
[2024-03-06] MEDS: benzocaine-menthol 78 gm Canister 1 SPRAY TOPICAL (08:17)
[2024-03-06] MEDS: ibuprofen 800 mg tablet PO ×3 (08:18→21:21)
[2024-03-06] MEDS: docusate sodium 100 mg Capsule PO ×2 (08:18→17:42)
[2024-03-06] MEDS: PRENATAL VIT NO.130/IRON/FOLIC 1 EACH TABLET PO (08:18)
[2024-03-06] MEDS: NIFEdipine ER (24 hr) 30 mg Tablet PO ×2 (08:18→17:42)
[2024-03-06] MEDS: lanolin oint 7 gm 1 APPLIC TOPICAL (08:18)
[2024-03-06] MEDS: oxytocin 30 UNIT/500 ML BAG 600 UNIT IV (08:22)
--- NOTE | 2024-03-06 09:04 | PM.DELIVERY ---
Delivery Note: Date of delivery: March 06, 2024 Pre-delivery diagnoses: 38 w 0 d gestational diabetes, requiring insulin gestational hypertension, on procardia admitted for induction of labor Post-delivery diagnoses: 38 w 0 d gestational diabetes, requiring insulin gestational hypertension, on procardia admitted for induction of labor vaginal delivery third-degree perineal laceration, repaired Procedure: induction of labor vaginal delivery repair of third-degree perineal laceration Op report anesthesia: Epidural Delivering Physician: Rohit Peraza MD Estimated blood loss (mL): 300 Findings: , vigorous male , OP Cord gases and blood obtained Normal placenta and cord Third-degree perineal laceration repaired in layers EBL: 300 cc No complications Pre-Delivery Course: cytotec 25 ug x three doses given intravaginally pitocin per protocol given Delivery: vaginal Post-Delivery Status: good History History History 1 Term Miscarriages/Ectopic Living Children A&P Assessment and plan (1) Vaginal delivery: Coding Level of Care Code Acute Code for Chg Fwd Diagnoses Vaginal delivery O80 Time Spent (min) 60
[2024-03-06 20:04] LABS: Hematocrit 35.1 % (36-47); Mean Corpuscular HGB Conc 33.9 g/dL (30-55); Mean Corpuscular Hemoglobin 31.2 pg (27-33); Mean Corpuscular Volume 92.1 fl (85-98); Platelet Count 265 10^3/cmm (157-399); Red Blood Count 3.81 10^6/uL (3.85-5.65); Red Cell Distribution Width 13.8 % (12.1-15.1); White Blood Count 25.37 10^3/uL (3.29-11.43)
[2024-03-07 04:39] VITALS: BP 137/82; PULSE 77; RESP 17; TEMP 36.8; O2SAT 98
--- NOTE | 2024-03-07 08:00 | ANE.PACU2 ---
Inpatient post-anesthesia follow up: Airway intact: Yes Vital signs: Temperature 98.0 F Pulse Rate 84 Respiratory Rate 15 Blood Pressure 149/91 Pulse Oximetry 99 Oxygen Delivery Me thod Room Air Oxygen Flow Rate Fraction of Inspir ed Oxygen Hydration adequate: Yes Nausea and vomiting: No Pain level: 1 Mental status: Baseline Epidural Start/End: Epidural Start Date: 03/05/24 Epidural Start Time: 07:10 Epidural End Date: 03/06/24 Epidural End Time: 06:23
[2024-03-07] MEDS: ibuprofen 800 mg tablet PO (08:42)
[2024-03-07] MEDS: docusate sodium 100 mg Capsule PO (08:42)
[2024-03-07] MEDS: PRENATAL VIT NO.130/IRON/FOLIC 1 EACH TABLET PO (08:42)
[2024-03-07] MEDS: NIFEdipine ER (24 hr) 30 mg Tablet PO (08:45)
[2024-03-07 08:46] VITALS: BP 136/84; PULSE 85; RESP 16; TEMP 36.8; O2SAT 99
--- NOTE | 2024-03-07 10:54 | PM.OBGYDC ---
Discharge Providers FUNERAL ARRANGEMENT DIRECTOR Date of Admission: 03/04/24 07:55 Date of Discharge: 03/07/24 Attending Provider at Admission: Rohit Peraza MD Attending Provider at Discharge: Rc Crandall MD Primary Care Provider: GAYLE Thorpe Diagnoses at Discharge Discharge Diagnosis (1) Vaginal delivery: Status: Acute Reason for Visit Reason for Visit: IOL Hospital Course Hospital Course Mrs. Angelita ALVAREZ 29-year-old female G1, P1 admitted to labor and delivery with estimated gestational age at 38 weeks for induction. complicated by gestational hypertension and gestational diabetes. She had a spontaneous vaginal delivery complicated by perineal third-degree laceration. She is afebrile and hemodynamically stable day 1. Tolerating diet well. Ambulating without difficulty. Information Peripartum Data: Infant Delivery Method: Vaginal Physical Exam Narrative: GA; alert and oriented x 3 HEENT: normal Breasts: engorged Nipples - skin intact Lungs; clear to auscultation Heart: regular rhythm, no murmurs. Abd: Appropriately tender. BS+. Uterine fundus below umbilicus. No Fundal Tenderness. Perineum: normal lochia. Extremities: no edema, no cyanosis, no tenderness. Urinary Catheter Management: Rivera: Cath Placed During This Visit: yes, but has since been removed by the nurse Reason for Continuing Indwelling Catheter: Decision to DC Catheter Urinary Catheter Date of Insertion: 03/05/24 Urinary Catheter Time of Insertion: 07:39 Date Urinary Catheter Removed: 03/06/24 Time Urinary Catheter Discontinued: 06:08 History History History 1 Term Miscarriages/Ectopic Living Children Discharge Data Studies Completed and Pending Laboratory Results WBC 25.37 10^3/uL (3.29-11.43) H 03/06/24 19:52 RBC 3.81 10^6/uL (3.85-5.65) L 03/06/24 19:52 Hgb 11.90 g/dL (11.27-16.99) 03/06/24 19:52 Hct 35.1 % (36-47) L 03/06/24 19:52 MCV 92.1 fl (85-98) 03/06/24 19:52 MCH 31.2 pg (27-33) 03/06/24 19:52 MCHC 33.9 g/dL (30-55) 03/06/24 19:52 RDW 13.8 % (12.1-15.1) 03/06/24 19:52 Plt Count 265 10^3/cmm (157-399) 03/06/24 19:52 MPV 10.0 fL (7.4-10.4) 03/06/24 19:52 Neut % (Auto) 72.9 % 03/04/24 08:22 Lymph % (Auto) 18.4 % 03/04/24 08:22 [place] % (Auto) 6.4 % 03/04/24 08:22 Eos % (Auto) 0.8 % 03/04/24 08:22 Baso % (Auto) 0.3 % 03/04/24 08:22 Neut # (Auto) 6.47 10^3/uL (1.8-7.7) 03/04/24 08:22 Lymph # (Auto) 1.6 10^3/uL (0.8-4.8) 03/04/24 08:22 [place] # (Auto) 0.6 10^3/uL (0.2-0.9) 03/04/24 08:22 Eos # (Auto) 0.1 10^3/uL (0.0-0.8) 03/04/24 08:22 Baso # (Auto) 0.0 10^3/uL (0.0-0.1) 03/04/24 08:22 Nucleated RBC % (auto) 0 % 03/04/24 08:22 Nucleated RBCs # 0.0 /100WBC 03/04/24 08:22 POC Glucose 96 mg/dL (70-110) 03/05/24 21:19 Blood Type O Positive 03/04/24 08:22 Rho(D) Type Rh positive 03/04/24 08:22 Antibody Screen Negative 03/04/24 08:22 Vitals Last Vital Signs Temp 98.3 F 03/07/24 08:46 Pulse 85 03/07/24 08:46 Resp 16 03/07/24 08:46 BP 136/84 03/07/24 08:46 Pulse Ox 99 03/07/24 08:46 O2 Del Method Room Air 03/07/24 08:46 Results Labs OB ([facility]): Obstetrics US 01/16/24 Blood Type O Positive 03/04/24 Antibody Screen Negative 03/04/24 Hct 35.1 % (36-47) L 03/06/24 Hgb 11.90 g/dL (11.27-16.99) 03/06/24 Rho(D) Type Rh positive 03/04/24 Plt Count 265 10^3/cmm (157-399) 03/06/24 Hep Bs Antigen Non-reactive (Nonreactive) 08/14/23 Hepatitis C Antibody Non-reactive (Nonreactive) 08/14/23 Rubella IgG Antibody 261.3 IU/mL (0.0-10.0) H 08/14/23 RPR Nonreactive (Nonreactive) 08/14/23 HIV 1&2 Ab & HIV 1 Ag Non-reactive (Non-Reactiv) 08/14/23 TSH 1.66 uIU/mL (0.27-4.20) 08/14/23 Free T4 1.15 ng/dL (0.82-1.77) 08/14/23 Cystic Fibrosis Screen Negative 08/14/23 Glucose 1 Hr 50 gm 134 mg/dL (85-140) 09/11/23 Gest Glucose Tolerance mg/dL 12/25/23 Hemoglobin A1c 5.5 % (4.0-6.0) 06/05/23 Uric Acid 4.7 mg/dL (2.4-5.7) 02/12/24 HCG, Qual Positive (Negative) H 07/24/23 Urine Opiates Screen Negative ng/mL (Negative) 08/14/23 Ur Barbiturates Screen Negative ng/mL (Negative) 08/14/23 Ur Phencyclidine Scrn Negative ng/mL (Negative) 08/14/23 Ur Amphetamines Screen Negative ng/mL (Negative) 08/14/23 U Benzodiazepines Scrn Negative ng/mL (Negative) 08/14/23 Urine Cocaine Screen Negative ng/mL (Negative) 08/14/23 U Marijuana (THC) Screen Negative ng/mL (Negative) 08/14/23 Micro Urine Specimen 09/11/23 Pap Smear Interpret See note 09/11/23 Discharge Plan Discharge Patient Disposition: Home Condition: Stable Prescriptions: New acetaminophen 325 mg capsule 325 mg PO Q4H PRN (Reason: fever or pain) Qty: 60 0RF ibuprofen 800 mg tablet 800 mg PO TID PRN (Reason: pain) Qty: 60 0RF Continued (DME) blood-glucose meter [Blood Glucose Monitoring] Kit See Rx Instructions .ROUTE .MEDSUPPLY Qty: 1 2RF Rx Instructions: As directed nifedipine [Procardia XL] 30 mg tablet extended release 24hr 30 mg PO BID Qty: 60 0RF (DME) blood-glucose meter [Blood Glucose Monitoring] Kit See Rx Instructions .ROUTE .MEDSUPPLY Qty: 1 0RF Rx Instructions: As directed (DME) lancets [2-In-1 Lancet Device] 30 gauge misc See Rx Instructions .ROUTE .MEDSUPPLY Qty: 100 1RF Rx Instructions: As directed (DME) OneTouch Verio test strips Strip See Rx Instructions .ROUTE .COMPLEX Qty: 100 0RF Dose Instruction: USE DIRECTED Rx Instructions: USE DIRECTED metformin 500 mg tablet See Rx Instructions .ROUTE .COMPLEX Qty: 90 0RF Hold Instructions: Dose Change Dose Instruction: Take 1 tablet by mouth once daily Rx Instructions: Take 1 tablet by mouth once daily Discontinued Novolin N FlexPen 100 unit/mL (3 mL) insulin pen 10 unit SUBCUT DAILY Qty: 15 0RF Rx Instructions: Inject 10 units subcutaneously at 9PM daily. Discharge Orders: Discharge Order (Routine); Ordered 03/07/24 Ordered By: Rc Crandall Referrals: Rohit Peraza MD [Physician] - 2 weeks (Recheck blood pressure and glucose) Discharge Diet: Usual diet Discharge Activity: Limit activity as instructed Patient Instructions: Depression (DC), Opioid Safety (DC), Preeclampsia and Eclampsia After Delivery (GEN), Hemorrhage (DC), OB Discharge Report, OB Food/Drug Interaction Guide, Opioid Safety, OB Home Care, OB Vaginal Deliveries - [facility], Abnormal Bleeding Activity Restrictions/Additional Instructions: 1. Please call [facility] on next working day to make your appointment in 2 weeks to check blood pressure and glucose levels. 2. Please stay home until you come back to the clinic on first post-hospatilization check up. 3. Please follow instructions on your medications CAREFULLY. 4. If you have abdominal incision, do not cover it unless dressing is necessary because of drainage. OK to shower, but avoid bath. Leave steri-strips until they fall off. If they are still on one week after surgery, you may remove them. 5. If you had vaginal surgery or vaginal repair, Dr. Crandall may instruct you to take SITZ bath. 6. Yellow, blood tinged odorous vaginal discharge is usually normal after hysterectomy or vaginal surgeries. 7. No SEXUAL INTERCOURSE, tampons, or douches until you are completely released from the post-operative care. 8. Avoid constipation by eating right and maybe using some Metamucil or Milk of Magnesia. 9. All prescription refills are given during the working hours. Please do no wait till it runs out. Call the clinic at [phone] before your medication runs out. The clinic will get in touch with your doctor to prescribe medications if necessary. 10. Please remain within 40 mile radius from our hospital because emergencies do happen now and then during the post-operative period. 11. If you have stairs at home, take one step at a time slowly and minimize the number of trips. It helps to stay in one floor for the next few days. No lifting except what you can lift by one hand until you are released from the post-operative care. 12. Driving is discouraged until you are well healed. It may be 3-4 weeks before you feel strong enough to drive. You should be able to turn and look through the rear window without pain and you should be able to push the brake pedal very hard without pain before you drive. No fast rules, but SAFETY should be your primary concern. DO NOT drive if you are on sedating medications such as narcotics. 13. Call the clinic (during working hours) to make urgent appointment or go to the Emergency room, if any of the following occurs: i. Vaginal bleeding becomes heavy, more than a period. ii. Incision becomes red and sore, or drains pus. iii. Your TEMPERATURE is over 100.4F or you have chill. iv. IV site becomes red and swollen (a little ``knot?? is usually OK) v. Persistent nausea and vomiting vi. Persistent constipation or diarrhea vii. Rash or allergic reaction to medications. Discharge Attestations FUNERAL ARRANGEMENT DIRECTOR Time Spent in Discharge Care*: greater than 30 min Coding Level of Care Code Acute Code for Chg Fwd Diagnoses Vaginal delivery O80
[2024-03-07 12:43] VITALS: BP 149/91; PULSE 84; RESP 15; TEMP 36.7
== END 2024-03-07 12:44 | disposition home or self-care (01) | DRG 768 ==
LOC: OPOB 07:55 → OBGYN 07:55
PROVIDERS: Admitting Provider Obstetrics & Gynecology; Family Provider Nurse Practitioner Family; PCP Nurse Practitioner Family; Visit Provider Obstetrics & Gynecology
DX: O24.424 Gestational diabetes mellitus in childbirth, insulin controlled (principal); Z37.0 Single live birth; O70.20 Third degree perineal laceration during delivery, unspecified; O13.4 Gestational [pregnancy-induced] hypertension without significant proteinuria, complicating childbirth; Z3A.38 38 weeks gestation of pregnancy
CPT/HCPCS: 36415; 36416; 51702; 59025; 59409; 82962; 83986; 85025; 85027; 86850; 86900; J2405; J2590; J2795; J7120; J7121

== ENCOUNTER → 2024-03-11 09:43 | Outpatient (BNVA) | payer BC, MEDICAID, SELFPAY | PROVIDERS: Family Provider Nurse Practitioner Family; PCP Nurse Practitioner Family; Visit Provider Obstetrics & Gynecology | DX: I10 Essential (primary) hypertension (principal) | CPT/HCPCS: 81000 ==

== ENCOUNTER → 2024-06-15 08:58 | Outpatient (BNVA) | payer BC, MEDICAID, SELFPAY | PROVIDERS: Family Provider Nurse Practitioner Family; PCP Nurse Practitioner Family; Visit Provider Nurse Practitioner Family | DX: I10 Essential (primary) hypertension (principal); E11.9 Type 2 diabetes mellitus without complications; R53.83 Other fatigue | CPT/HCPCS: 80053; 80061; 83036; 84439; 84443; 85025 ==

== ENCOUNTER → 2025-06-21 15:28 | Outpatient (BNVA) | payer BC, MEDICAID, SELFPAY | PROVIDERS: Family Provider Nurse Practitioner Family; PCP Nurse Practitioner Family; Visit Provider Nurse Practitioner Family | DX: I10 Essential (primary) hypertension (principal); E13.69 Other specified diabetes mellitus with other specified complication | CPT/HCPCS: 80053; 80061; 82043; 83036; 83721; 84439; 84443 ==